=== PATIENT | female | born 1955 | race Two or more races ===

== ENCOUNTER 2022-08-12 00:16 | Emergency (ER) | payer OTHER ==
[~2022-08-12] VITALS: Ht 162.6 cm; Wt 76.2 kg
--- NOTE | 2022-08-12 00:22 | NUR ---
[id number] FROM HOME C/O DIZZINESS. PT A/OX4. TOLERATING R/A AT 97% WITH NO RESP DISTRESS. AMBULATORY WITH STEADY GAIT. CONNECTED PT TO POX AND MONITOR. SAFETY MEASURES IN PLACE.
[2022-08-12] MEDS ORDERED: MECLIZINE HCL 12.5 MG TABLET PO ONE (00:30)
--- NOTE | 2022-08-12 00:32 | NUR ---
(DTR) THUY [phone]
[2022-08-12] MEDS ORDERED: MECLIZINE HCL 25 MG TABLET ONE (00:35)
--- NOTE | 2022-08-12 00:55 | NUR ---
ANIMAL NURSE AT PT'S BEDSIDE
[2022-08-12 01:19] LABS: BASOPHILS % (AUTO) 0.3 % (0.0-2.0); EOSINOPHILS % (AUTO) 3.2 % (0.0-6.0); HEMATOCRIT 40 % (33-45); HEMOGLOBIN 13.7 g/dL (11.5-14.8); LYMPHOCYTES # (AUTO) 1.7 K/uL (0.8-4.8); LYMPHOCYTES % (AUTO) 22.6 % (20.0-44.0); MEAN CORPUSCULAR HGB CONC 34 g/dl (31.0-36.0); MEAN CORPUSCULAR VOLUME 90 fL (82-100); MONOCYTES # (AUTO) 0.6 K/uL (0.1-1.30); NEUTROPHILS # (AUTO) 4.9 K/uL (1.8-8.9); NEUTROPHILS % (AUTO) 65.9 % (43.0-81.0); PLATELET COUNT (AUTO) 275 K/uL (150-450); RED BLOOD CELL COUNT(AUTO) 4.46 MIL/uL (4.0-5.2); WHITE BLOOD COUNT (AUTO) 7.5 K/uL (4.3-11.0)
[2022-08-12 01:26] LABS: CALCIUM, SERUM 9.2 mg/dL (8.5-10.1); CREATININE 1.1 mg/dL (0.6-1.3); POTASSIUM 4.3 mmol/L (3.5-5.1)
[2022-08-12] MEDS ORDERED: DIAZEPAM 5 MG TABLET ONE (01:39)
[2022-08-12] MEDS ORDERED: DIAZEPAM 5 MG TABLET PO ONE (02:00)
[2022-08-12] MEDS ORDERED: MECL-159 PO (02:46)
--- NOTE | 2022-08-12 02:59 | NUR ---
Liz bearden in EDM - 08/12/22 at 0317 by VANESSA Patient discharged to home in stable condition. Written and verbal after care instructions given. Patient verbalizes understanding of instruction. PT ambulatory with a steady gait
--- NOTE | 2022-08-12 03:24 | NUR ---
Patient discharged to home in stable condition. Written and verbal after care instructions given. Patient verbalizes understanding of instruction. PT ambulatory with a steady gait with assist
[2022-08-12 03:27] VITALS: BP 114/75
== END 2022-08-12 03:28 | disposition home or self-care (01) ==
LOC: ER 00:18
DX: R42 Dizziness and giddiness (principal)
CPT/HCPCS: 99284; 93005; 85025; 80048; 36415; J8597